=== PATIENT | female | born 1985 | race African-American/Black ===

== ENCOUNTER 2017-04-23 23:58 | Emergency (ER) ==
[2017-04-24 00:02] VITALS: BP 127/82; TEMP 98.3; BMI 33.8
[2017-04-24] MEDS ORDERED: MORPHINE 4 MG/ML VIAL IVP STA (00:17)
[2017-04-24] MEDS ORDERED: TORADOL IVP STA (00:39)
--- NOTE | 2017-04-24 00:44 | ED.PDOC ---
General ED Provider: Dr. YASMANI CANDELARIA Chief Complaint: Abdominal Pain Stated Complaint: Abdominal Pain on the mid and right lower quadrants for the past 2 hours with mucus discharge. Last bowel movement 2 hours ago was normal. Time Seen by Physician: 00:45 Mode of Arrival: Wheelchair Information Source: Patient Exam Limitations: No limitations Primary Care Provider: GINGER MENESES Nursing and Triage Documentation Reviewed and Agree: Yes Reviewed sepsis parameters & appropriate labs ordered?: No System Inflammatory Response Syndrome: Not Applicable Sepsis Protocol: For patient's 13 years and over: Temp is 96.8 and below OR 101 and greater Pulse >90 BPM Resp >20/minute Acutely Altered Mental Status Are patient's symptoms suggestive of a new infection, such as: -Pneumonia -Skin, Soft Tissue -Endocarditis -UTI -Bone, Joint Infection -Implantable Device -Acute Abdominal Infection -Wound Infection -Meningitis -Blood Stream Catheter Infection -Unknown System Inflammatory Response Syndrome: Not Applicable Review of Systems - Review Of Systems Constitutional: Reports: No symptoms Eyes: Reports: No symptoms Ears, Nose, Mouth, Throat: Reports: No symptoms Respiratory: Reports: No symptoms Cardiac: Reports: No symptoms GI: Reports: Abdominal pain : Reports: Pain Musculoskeletal: Reports: No symptoms Skin: Reports: No symptoms Neurological: Reports: No symptoms Endocrine: Reports: No symptoms Hematologic/Lymphatic: Reports: No symptoms All Other Systems: Reviewed and Negative Past Medical History - Past Medical History Previously Healthy: Yes Endocrine: Reports: None Cardiovascular: Reports: None Respiratory: Reports: None Hematological: Reports: None Gastrointestinal: Reports: None Genitourinary: Reports: None Neuro/Psych: Reports: None Musculoskeletal: Reports: None Cancer: Reports: None Last Menstrual Period: 2 WEEKS AGO - Surgical History General Surgical History: Reports: , Cholecystectomy, Hernia Repair ( umbilical area ) - Family History Family History: Reports: None - Social History Smoking Status: Current every day smoker, Heavy tobacco smoker Hx Substance Use: No Alcohol Screening: None - Immunizations Tetanus Shot up to Date: Yes Physical Exam - Physical Exam Appearance: Ill-appearing Ill-appearing: Moderate Pain Distress: Severe Eyes: RIKI, EOMI, Conjunctiva clear Neck: Supple Respiratory: Airway patent, Breath sounds clear, Breath sounds equal, Respirations nonlabored Cardiovascular: RRR, Pulses normal, No murmur GI/: Soft, Tender Musculoskeletal: Normal strength Skin: Warm, Dry Neurological: Alert, Oriented Psychiatric: Anxious Interpretation - Radiology Interpretation Radiology Interpretation By: ED Physician Radiology Results: Positive (right adnexal cyst measuring 4 x 3.6 cm) Exam Interpreted: CT Scan Re-Evaluation - Re-Evaluation Time of Re-Evaluation: 01:56 Status: Improved Pain Level: better Critical Care Note - Critical Care Note Total Time (mins): 0 Course - Course Hematology/Chemistry: 04/24/17 00:20 04/24/17 00:20 Orders, Labs, Meds: Lab Review 04/24/17 04/24/17 04/24/17 00:20 00:20 00:35 WBC 8.00 RBC 3.97 L Hgb 12.1 Hct 34.8 L MCV 87.7 MCH 30.5 MCHC 34.8 RDW Coeff of [place] 13.5 Plt Count 290 Immature Gran % (Auto) 0.3 Neut % (Auto) 44.2 Lymph % (Auto) 44.8 [place] % (Auto) 7.0 Eos % (Auto) 3.4 Baso % (Auto) 0.3 Immature Gran # (Auto) 0.0 Neut # 3.6 Lymph # 3.6 H [place] # 0.6 Eos # 0.3 Baso # 0.0 Sodium 142 Potassium 4.1 Chloride 108 H Carbon Dioxide 27 Anion Gap 11.1 BUN 7 Creatinine 0.85 Estimated GFR (MDRD) 95.00 BUN/Creatinine Ratio 8.23 Glucose 92 Calcium 9.2 Total Bilirubin 0.4 AST 15 ALT 14 Alkaline Phosphatase 56 Total Protein 6.7 Albumin 3.4 Globulin 3.3 Albumin/Globulin Ratio 1.03 Amylase 67 Lipase 29 Urine Color Yellow Urine Clarity Clear Urine pH 6.0 Ur Specific [place] >=1.030 Urine Protein Negative Urine Glucose (UA) Negative Urine Ketones Trace Urine Blood 1+ Urine Nitrite Negative Urine Bilirubin Negative Urine Urobilinogen 0.2 Ur Leukocyte Esterase Negative Urine Microscopic RBC 2-5 Ur Squamous Epith Cells 5-10 Urine Bacteria 1+ Urine Test 04/24/17 00:35 WBC RBC Hgb Hct MCV MCH MCHC RDW Coeff of [place] Plt Count Immature Gran % (Auto) Neut % (Auto) Lymph % (Auto) [place] % (Auto) Eos % (Auto) Baso % (Auto) Immature Gran # (Auto) Neut # Lymph # [place] # Eos # Baso # Sodium Potassium Chloride Carbon Dioxide Anion Gap BUN Creatinine Estimated GFR (MDRD) BUN/Creatinine Ratio Glucose Calcium Total Bilirubin AST ALT Alkaline Phosphatase Total Protein Albumin Globulin Albumin/Globulin Ratio Amylase Lipase Urine Color Urine Clarity Urine pH Ur Specific [place] Urine Protein Urine Glucose (UA) Urine Ketones Urine Blood Urine Nitrite Urine Bilirubin Urine Urobilinogen Ur Leukocyte Esterase Urine Microscopic RBC Ur Squamous Epith Cells Urine Bacteria Urine Test Negative Orders Category Date Time Status ED IV/MEDIPORT/POWERPORT .ONCE EMERGENCY 04/24/17 00:17 Active AMYLASE Stat LAB 04/24/17 00:20 Completed CBC W/ AUTO DIFF Stat LAB 04/24/17 00:20 Completed COMPREHENSIVE METABOLIC PANEL Stat LAB 04/24/17 00:20 Completed LIPASE Stat LAB 04/24/17 00:20 Completed URINALYSIS C & S IF INDICATED Stat LAB 04/24/17 00:35 Completed URINE CULTURE Stat LAB 04/24/17 00:56 Completed URINE Stat LAB 04/24/17 00:35 Completed 0.9 % Sodium Chloride [Saline Flush] MEDS 04/24/17 00:17 Discontinued 1 syr IVF PRN PRN Ketorolac Tromethamine [Toradol] MEDS 04/24/17 00:39 Discontinued 30 mg IVP ONCE STA Morphine Sulfate [Morphine 4 mg/ml Vial] MEDS 04/24/17 00:17 Discontinued 4 mg IVP ONCE STA Ondansetron HCl/Pf [Zofran 4 mg/2 ml] MEDS 04/24/17 01:54 Discontinued 4 mg IVP ONCE STA CT ABD/PEL WO RENAL STONE PROT Stat RADS 04/24/17 00:17 Completed Medications Discontinued Medications Generic Name Dose Route Start Last Admin Trade Name Freq PRN Reason Stop Dose Admin Ketorolac Tromethamine 30 mg 04/24/17 00:39 04/24/17 01:18 Toradol IVP 04/24/17 00:40 30 mg ONCE STA Administration Morphine Sulfate 4 mg 04/24/17 00:17 04/24/17 02:12 Morphine 4 Mg/Ml Vial IVP 04/24/17 00:18 4 mg ONCE STA Administration Ondansetron HCl 4 mg 04/24/17 01:54 04/24/17 02:13 Zofran 4 Mg/2 Ml IVP 04/24/17 01:55 4 mg ONCE STA Administration Sodium Chloride 1 syr 04/24/17 00:17 04/24/17 01:18 Saline Flush IVF 1 syr PRN PRN Administration To flush IV Vital Signs: Temp Pulse Resp BP Pulse Ox 04/23/17 23:59 98.3 F 77 16 127/82 99 Departure - Departure Time of Disposition: 02:15 Disposition: HOME SELF-CARE Discharge Problem: Ovarian cyst Qualifiers: Laterality: right Qualified Code(s): N83.201 - Unspecified ovarian cyst, right side Instructions: Ovarian Cyst (ED) Condition: Stable Pt referred to PMD for follow-up: Yes IPMP verified?: No Additional Instructions: Push fluids Take Medications as prescribed Follow up with PCP in 3 days Prescriptions: Hydrocodone/Acetaminophen [[place] 5-325 Tablet] 1 tab PO Q6HR PRN #12 tablet PRN Reason: PAIN Ketorolac Tromethamine [Toradol] 10 mg PO Q6H #14 tablet Allergies/Adverse Reactions: Allergies No Known Allergies Allergy (Unverified 04/24/17 00:03) Home Medications: Ambulatory Orders Hydrocodone/Acetaminophen [[place] 5-325 Tablet] 1 tab PO Q6HR PRN #12 tablet Ketorolac Tromethamine [Toradol] 10 mg PO Q6H #14 tablet 04/24/17 Disposition Discussed With: Patient, Family
--- NOTE | 2017-04-24 01:20 | CT ---
EXAM: CT scan abdomen pelvis without contrast HISTORY: Right lower quadrant pain COMPARISON: CT scan abdomen pelvis 07/11/2010 FINDINGS: Contiguous axial images obtained through the abdomen pelvis without contrast utilizing 3-m m collimation. Sagittal and coronal reconstructions were imaged and reviewed. The visualized lung b ases are clear. There has been prior cholecystectomy. The liver, pancreas, spleen and adrenal gland s have normal unenhanced CT appearance. The kidneys are morphologically normal.. There is a small u mbilical hernia containing only fat. There is a normal appendix.. There is a right adnexal cyst moe suring 4.0 x 3.6 centimeters. There is no free fluid. The uterus and left adnexa are unremarkable. IMPRESSION: Normal appendix. Right adnexal cyst without free fluid. Small umbilical hernia containing only fat.
[2017-04-24] MEDS ORDERED: ZOFRAN 4 MG/2 ML IVP STA (01:54)
== END 2017-04-24 02:30 | disposition home or self-care (01) ==
LOC: ED 23:58
DX: N83.201 Unspecified ovarian cyst, right side (principal); F17.210 Nicotine dependence, cigarettes, uncomplicated
CPT/HCPCS: 36415; 74176; 80053; 81001; 81025; 82150; 83690; 85025; 87086; 96374; 96375; 99283

== ENCOUNTER 2017-08-19 16:41 | Emergency (ER) | payer OTHER ==
[2017-08-19 16:47] VITALS: BP 123/84; TEMP 98.9; BMI 39.1
[2017-08-19] MEDS ORDERED: SODIUM CHLORIDE 500 ML IV STA (16:59)
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
--- NOTE | 2017-08-19 18:30 | DI ---
EXAM: Three views of the right hand HISTORY: Injury COMPARISON: None available FINDINGS: No fracture or dislocation is identified. The joint spaces are maintained. There is minimal spurrin g of the base of the third proximal phalanx. IMPRESSION: No acute osseous abnormality.
--- NOTE | 2017-08-19 18:31 | DI ---
EXAM: Three views of the right wrist HISTORY: Injury COMPARISON: None available FINDINGS: No fracture or dislocation is identified. The joint spaces are maintained. IMPRESSION: No acute osseous abnormality.
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
[2017-08-19] MEDS ORDERED: ZOFRAN 4 MG/2 ML IM STA (18:52)
[2017-08-19] MEDS ORDERED: MORPHINE 4 MG/ML SYRINGE IM STA (18:52)
== END 2017-08-19 19:32 | disposition home or self-care (01) ==
LOC: ED 16:41
DX: S90.31XA Contusion of right foot, initial encounter (principal); S60.511A Abrasion of right hand, initial encounter; R07.89 Other chest pain; R10.9 Unspecified abdominal pain; M54.9 Dorsalgia, unspecified; S90.811A Abrasion, right foot, initial encounter; V03.90XA Pedestrian on foot injured in collision with car, pick-up truck or van, unspecified whether traffic or nontraffic accident, initial encounter; W19.XXXA Unspecified fall, initial encounter; F17.210 Nicotine dependence, cigarettes, uncomplicated
CPT/HCPCS: 36415; 80053; 84703; 85025; 96372; 99284